=== PATIENT | female | born 1980 | race African-American/Black ===

== ENCOUNTER 2020-05-21 07:44 | Outpatient (REF) | payer OTHER, SELFPAY ==
[2020-05-21 11:07] LABS: MANUAL DIFF FLAG NO
[2020-05-21 11:18] LABS: Basophils Percent Auto 0.6 % (0-2); Eosinophils Absolute Auto 0.2 X10*3/uL (0.0-0.4); Eosinophils Percent Auto 4.1 % (0-4); Hematocrit 42.2 % (37-47); Hemoglobin 14.6 g/dl (12.0-16.0); Imm Gran Abs Auto 0.02 X10*3/uL (0.00-0.03); Imm Gran Pct Auto 0.4 % (0.0-0.4); Lymphocytes Absolute Auto 2.2 X10*3/uL (1.2-4.9); Lymphocytes Percent Auto 41.8 % (20-40); Mean Corpuscular HGB Conc 34.6 g/dl (31.0-35.0); Mean Corpuscular Hemoglobin 33.4 pg (27.0-33.0); Mean Corpuscular Volume 96.6 fL (80-98); Mean Platelet Volume 10.7 fL (9.4-12.3); Monocytes Absolute Auto 0.5 X10*3/uL (0.1-1.2); Monocytes Percent Auto 8.6 % (2-11); Neutrophils Absolute Auto 2.4 X10*3/uL (2.0-8.3); Neutrophils Percent Auto 44.5 % (45-73); Platelet Count 277 X10*3/uL (160-400); Red Blood Count 4.37 X10*6/uL (4.20-5.50); Red Cell Distribution Width 12.8 % (11.0-16.0); White Blood Count 5.4 X10*3/uL (4.8-10.8)
[2020-05-21 11:35] LABS: Estimated Average Glucose 94 mg/dL; Hemoglobin A1c % 4.9 %
[2020-05-21 11:50] LABS: Anion Gap 11 (12-20); Blood Urea Nitrogen 16 mg/dL (9-16); Calcium 9.3 mg/dL (8.4-10.2); Carbon Dioxide 25 mmol/L (22-29); Chloride 105 mmol/L (96-108); Cholesterol 177 mg/dL; Estimated Glomerular Filt Rate > 60; Glucose Fasting 102 mg/dL (60-99); HDL Cholesterol 42 mg/dL; LDL Cholesterol Calculated 110 mg/dl; Potassium 4.2 mmol/l (3.3-5.1); Sodium 137 mmol/L (135-145); Triglycerides 129 mg/dL
[2020-05-21 12:14] LABS: TSH reflex Free T4 1.04 mIU/mL (0.32-4.0)
== END 2020-05-21 07:45 | disposition home or self-care (01) ==
LOC: HO.HMGCLDS 07:44
PROVIDERS: PCP Internal Medicine; Visit Provider Internal Medicine
DX: F31.9 Bipolar disorder, unspecified (principal); Z76.89 Persons encountering health services in other specified circumstances; Z83.3 Family history of diabetes mellitus; Z72.0 Tobacco use
CPT/HCPCS: 36415; 80048; 80061; 83036; 84443; 85025

== ENCOUNTER → 2020-06-19 14:23 | Outpatient (BNVA) | payer OTHER, SELFPAY | PROVIDERS: Visit Provider Physician Assistant | DX: Z76.89 Persons encountering health services in other specified circumstances (principal) ==

== ENCOUNTER → 2020-06-22 14:32 | Outpatient (BNVA) | payer OTHER, SELFPAY | PROVIDERS: Visit Provider Physician Assistant | DX: S93.402D Sprain of unspecified ligament of left ankle, subsequent encounter (principal); X58.XXXD Exposure to other specified factors, subsequent encounter | CPT/HCPCS: 99212 ==

== ENCOUNTER 2020-07-03 11:33 | Outpatient (REF) | payer OTHER, SELFPAY ==
--- NOTE | 2020-07-03 11:33 | XR_ITS ---
EXAMINATION: XR ANKLE, LEFT CLINICAL INFORMATION: Left ankle sprain. COMPARISON: 04/02/2020 left ankle radiographs. TECHNIQUE: AP, lateral, and mortise views of the left ankle. FINDINGS: Again seen is a degenerative spur off of the medial margin of the medial malleolus without significant change. A corticated osseous densities are seen along the dorsal margins of the talonavicular and naviculocuneiform joints. There is a small plantar calcaneal spur. Mild soft tissue swelling is seen. XR/XR ankle LT min 3V IMPRESSION: Mild degenerative spurring as detailed above without significant interval change. No definitive acute abnormality.
== END 2020-07-03 11:34 | disposition home or self-care (01) ==
LOC: HO.HOSX 11:33
PROVIDERS: PCP Internal Medicine; Visit Provider Physician Assistant
DX: S93.492D Sprain of other ligament of left ankle, subsequent encounter (principal)
CPT/HCPCS: 73610; 99212

== ENCOUNTER 2020-07-23 15:00 | Outpatient (RCR) | payer OTHER, SELFPAY ==
--- NOTE | 2020-06-05 16:41 | MHC.PT.EP ---
[facility] [place] Office [place] Office [place] Office [address] Antonette Miller [address] [phone] F: [phone] F: [phone] F: [phone] F: [phone] Physical Therapy Plan of Care Date of Evaluation: 06/05/20 Date of Surgery: N/A Diagnosis: S82.892A closed avulsion fracture of left ankle, initial encounter Assessment: pt presents to physical therapy with pain, decreased range of motion, decreased strength, impaired functional mobility, impaired postural awareness, and gait deviations. pt is a good candidate for skilled PT due to age, potential remediation of impairments, typical disease/condition progression and prognosis, comorbidities, and motivation. pt would benefit from tailored strengthening and stretching exercise program, functional training, gait training, postural re-training, neuromuscular re-education, modalities as needed for pain, and equipment safety demonstration. Frequency and Duration: The patient will be seen 2x/wk for 6 wks Short Term Goals: pt will be I w/ HEP to promote self-management of condition. pt will improve L ankle dorsiflexion to neutral to promote normalized gait pattern on even ground. Clinical Administrator Goals: pt will report statistically significant improvement in self-reported outcome measure, LEFI, to facilitate return to PLOF. pt will report <2/10 L ankle pain w/ ambulation of >1200' on even ground to facilitate return to community ambulation. Treatment Plan: Modalities to reduce pain, spasms and effusion. Manual therapy to restore motion and function. Therapeutic exercise to improve strength and flexibility. Neuromuscular re-education for posture and balance. Therapeutic activities to return to functional activities of daily living. Please sign and return to therapist. Thank you for your referral.
--- NOTE | 2020-07-31 10:35 | MHC.PT.DC ---
[facility] [place] Office [place] Office [place] Office [address] Antonette Miller [address] [phone] F: [phone] F: [phone] F: [phone] F: [phone] Physical Therapy Discharge Report Diagnosis: S82.892A closed avulsion fracture of left ankle, initial encounter Date of Surgery: N/A Date of Evaluation: 06/05/20 Date of Discharge: 07/24/20 Treatments to Date: 12 Cancellations to Date: 1 No Shows to Date: 0 Discharge Status: Independent with HEP Recommend MD Follow-up Discharge Summary: The patient overall has not progressed as expected throughout this PT plan of care. She is limited by the midfoot and lateral ankle pain she sustained several months back. She continues to have pain at rest and with weight bearing. She has had a follow-up with orthopedics who are trying to get her a referral to a residential support worker. She is independent with her home exercise program and has the appropriate therabands. She is discharged from this physical therapy plan of care at this time. Electronically signed by: Britni France PT, DPT Please sign and return to therapist. Thank you for your referral.
== END 2020-07-31 10:35 | disposition other institution (70) ==
LOC: HO.PT 15:00
PROVIDERS: Visit Provider Physician Assistant
DX: S82.892D Other fracture of left lower leg, subsequent encounter for closed fracture with routine healing (principal)
CPT/HCPCS: 97110; 97112; 97116; 97161; 97530

== ENCOUNTER 2020-08-25 07:54 | Outpatient (REF) | payer OTHER, SELFPAY | END 2020-08-25 07:55 | disposition home or self-care (01) | LOC: HO.LAB 07:54 | PROVIDERS: PCP Internal Medicine; Visit Provider Internal Medicine | DX: Z20.822 Contact with and (suspected) exposure to COVID-19 (principal) | CPT/HCPCS: 36415; C9803; U0003 ==

== ENCOUNTER → 2020-12-16 15:40 | Outpatient (BNVA) | payer OTHER, SELFPAY | PROVIDERS: PCP Internal Medicine; Visit Provider Anesthesiology | DX: M79.672 Pain in left foot (principal); M19.072 Primary osteoarthritis, left ankle and foot; E66.01 Morbid (severe) obesity due to excess calories | CPT/HCPCS: 99202 ==

== ENCOUNTER 2021-06-12 08:46 | Outpatient (REF) | payer OTHER, SELFPAY ==
[2021-06-12 11:17] LABS: Hematocrit 41.7 % (37.0-47.0); Hemoglobin 14.1 g/dl (12.0-16.0); Mean Corpuscular HGB Conc 33.8 g/dl (31.0-35.0); Mean Corpuscular Hemoglobin 31.7 pg (27.0-33.0); Mean Corpuscular Volume 93.7 fL (80.0-98.0); Mean Platelet Volume 10.5 fL (9.4-12.3); Platelet Count 297 X10*3/uL (160-400); Red Blood Count 4.45 X10*6/uL (4.20-5.50); White Blood Count 6.1 X10*3/uL (4.8-10.8)
[2021-06-12 11:23] LABS: Estimated Average Glucose 97 mg/dL
[2021-06-12 11:37] LABS: Anion Gap 11 (12-20); Blood Urea Nitrogen 14 mg/dL (9-16); Calcium 9.4 mg/dL (8.4-10.2); Carbon Dioxide 25 mmol/L (22-29); Chloride 104 mmol/L (96-108); Cholesterol 187 mg/dL; Estimated Glomerular Filt Rate > 60; Glucose Fasting 87 mg/dL (60-99); HDL Cholesterol 42 mg/dL; LDL Cholesterol Calculated 107 mg/dl; Potassium 4.4 mmol/L (3.3-5.1); Sodium 136 mmol/L (135-145); Triglycerides 191 mg/dL
[2021-06-12 11:47] LABS: Free T4 (Free Thyroxine) 0.94 ng/dL (0.71-1.85)
[2021-06-13 09:02] LABS: Prolactin 9.4 ng/mL
== END 2021-06-12 08:47 | disposition home or self-care (01) ==
LOC: HO.HMGCLDS 08:46
PROVIDERS: PCP Internal Medicine; Visit Provider Clinical Nurse Specialist Psychiatric/Mental Health, Child & Adolescent
DX: Z51.81 Encounter for therapeutic drug level monitoring (principal); E66.9 Obesity, unspecified; E88.81 Metabolic syndrome and other insulin resistance
CPT/HCPCS: 36415; 80048; 80061; 83036; 84146; 84439; 84443; 85027

== ENCOUNTER 2021-06-24 13:45 | Outpatient (REF) | payer OTHER, SELFPAY ==
--- NOTE | ~2021-06-24 | MM_ITS ---
EXAMINATION: MM DIAGNOSTIC DIGITAL BREAST TOMOSYNTHESIS, BILATERAL US DIAGNOSTIC ULTRASOUND BREAST, LEFT CLINICAL INFORMATION: Fullness left axilla noted by patient (half lemon size) along with pain axilla and upper arm for approximately 6 weeks. No prior breast imaging. Age 41. The lifetime risk of breast cancer based on the Tyrer-Cuzick Model is 12%. COMPARISON: None (current study represents initial baseline exam). TECHNIQUE: Digital breast tomosynthesis is performed in both the craniocaudal and mediolateral oblique views along with computer-aided detection (CAD). Synthesized 2D images are generated from the tomosynthesis. Ultrasound left axilla is targeted to the area of clinical concern. Patient is able to point to area at time of imaging. Grayscale imaging and color Doppler are performed without and with harmonics. FINDINGS: There are scattered areas of fibroglandular density (ACR BI-RADS breast composition Category b). There are no significant masses, abnormal calcifications, or other abnormalities. There is no skin thickening or coarsening of the Oneal's ligaments. The axilla are unremarkable. There is small dermal lesion overlying left axilla marked with skin marker. Ultrasound targeted to the area of clinical concern left axilla demonstrates no cystic or solid mass. There is no skin thickening or edema tracking in soft tissue planes. There are scattered incidental axillary nodes demonstrated all with normal treasure architecture. Results are discussed with the patient at time of visit. MM/MM tomosynthesis diagnostic BI IMPRESSION: No mammographic evidence of malignancy or focal inflammatory changes. Unremarkable targeted left breast/axillary ultrasound. ASSESSMENT: BI-RADS 2: Benign RECOMMENDATION: 1. Patient should be managed based on the clinical impression. If clinically indicated, further evaluation may be considered with surgical consult. Decision to proceed with biopsy should be based on clinical grounds and degree of clinical concern. 2. Otherwise, routine annual screening mammography. This patient's information was entered into a reminder system with a target due date for their next mammogram.
== END 2021-06-24 13:46 | disposition home or self-care (01) ==
LOC: HO.MAMMO 13:45
PROVIDERS: PCP Internal Medicine; Visit Provider Physician Assistant
DX: N63.32 Unspecified lump in axillary tail of the left breast (principal)
CPT/HCPCS: 76642; 77062; 77066

== ENCOUNTER 2021-07-20 08:10 | Outpatient (REF) | payer OTHER, SELFPAY ==
--- NOTE | ~2021-07-20 | US_ITS ---
EXAMINATION: US PELVIS CLINICAL INFORMATION: Abnormal uterine and vaginal bleeding. COMPARISON: None TECHNIQUE: Ultrasound of the pelvis is performed using both transabdominal and transvaginal transducers along with Doppler. Transvaginal imaging is performed due to inadequate visualization transabdominally. FINDINGS: Uterus: The uterus is anteverted, anteflexed and measures 8.79 cm in length, 4.1 cm in AP, and 4.5 cm in transverse dimension. There is a hypoechoic partially exophytic lesion along the posterior fundus, likely subserosal measuring 1.6 x 1.8 x 1.8 cm. A second smaller lesion is seen superiorly measuring 1.3 x 1.3 x 1.4 cm, likely small fibroids. The double wall endometrial thickness is 0.50 mm. The uterus is smooth in contour and has normal myometrial echogenicity. No visible fibroid. There is a small round complex cyst with internal echoes in the cervix measuring 1.7 x 1.8 x 1.5 cm. Adnexa: Both ovaries are visualized. There is normal color flow to the adnexa. There is no ovarian torsion. There is no pelvic ascites or fluid collection. Right ovary measures 3.14 x 1.80 x 2.24 cm. Volume 6.63 mL. There is a simple cyst in the right ovary measuring 1.4 x 1.1 x 1.3 cm. Left ovary measures 2.20 x 1.42 x 1.65 cm and volume 2.70 mL. US/US pelvic and transvaginal IMPRESSION: Two uterine fibroids. Simple cyst right ovary. Complex nabothian cyst in the cervix measuring 1.8 cm.
== END 2021-07-20 08:11 | disposition home or self-care (01) ==
LOC: HO.HMGCX 08:10
PROVIDERS: PCP Internal Medicine; Visit Provider Internal Medicine
DX: N94.6 Dysmenorrhea, unspecified (principal); N93.8 Other specified abnormal uterine and vaginal bleeding
CPT/HCPCS: 76830; 76856

== ENCOUNTER → 2021-08-16 08:34 | Outpatient (BNVA) | payer OTHER, SELFPAY | PROVIDERS: PCP Internal Medicine; Referring Provider Internal Medicine; Visit Provider Surgery | DX: L98.9 Disorder of the skin and subcutaneous tissue, unspecified (principal); E66.9 Obesity, unspecified | CPT/HCPCS: 99202 ==

== ENCOUNTER 2021-08-17 12:22 | Outpatient (REF) | payer OTHER, SELFPAY ==
[2021-08-18 13:20] LABS: CT PCR NOT DETECTED (Not Detect.); NG PCR NOT DETECTED (Not Detect.)
[2021-08-24 03:12] LABS: HPV mRNA E6/E7 rflx Not Detected (Not Detected)
== END 2021-08-17 12:23 | disposition home or self-care (01) ==
LOC: HO.LAB 12:22
PROVIDERS: PCP Internal Medicine; Visit Provider Obstetrics & Gynecology
DX: Z12.4 Encounter for screening for malignant neoplasm of cervix (principal); Z11.51 Encounter for screening for human papillomavirus (HPV); N93.9 Abnormal uterine and vaginal bleeding, unspecified; D21.9 Benign neoplasm of connective and other soft tissue, unspecified
CPT/HCPCS: 87491; 87591; 87624; 88142; 99202

== ENCOUNTER 2021-08-23 08:02 | Outpatient (REF) | payer OTHER, SELFPAY | END 2021-08-23 08:03 | disposition home or self-care (01) | LOC: HO.LAB 08:02 | PROVIDERS: Visit Provider Obstetrics & Gynecology | DX: N93.9 Abnormal uterine and vaginal bleeding, unspecified (principal) | CPT/HCPCS: 58100; 81025; 88305 ==

== ENCOUNTER → 2021-09-06 08:37 | Outpatient (BNVA) | payer OTHER, SELFPAY | PROVIDERS: PCP Internal Medicine; Referring Provider Internal Medicine; Visit Provider Physician Assistant Surgical ==

== ENCOUNTER → 2021-09-07 09:21 | Outpatient (BNVA) | payer OTHER, SELFPAY | PROVIDERS: Visit Provider Obstetrics & Gynecology ==

== ENCOUNTER 2021-09-13 08:15 | Outpatient (REF) | payer OTHER, SELFPAY ==
[2021-09-13 08:15] VITALS: BP 133/92; PULSE 77; RESP 19; TEMP 36.3; O2SAT 99; BMI 52.9
--- NOTE | 2021-09-13 11:34 | W.PM.OPN ---
Operative Note Operative Note Date of Service: 09/13/21 Narrative: Preop diagnosis: Right axillary in lesion Postop diagnosis: The same Procedure: Excision of skin lesion, right axilla under local anesthesia Surgeon: Phil Chacon The patient is a 41-year-old female with a skin lesion on the right axilla. This was a polypoid looking lesion, elevated up to a height of 1.5 cm, with a very narrow base, soft and well-defined. She understood the technique of excision under local anesthesia. She was aware of the risks, benefits and alternatives. She was brought to the minor procedure room placed supine with right arm abducted to expose the axilla. This skin lesion was seen within the axilla itself. The area was prepped and draped. Lidocaine 1% was used for local anesthesia. I excised the skin lesion at the base using a blade 15 including the full-thickness of skin. This was sent as specimen. I closed the excision site with a nylon 3-0 interrupted stitch. Dressings were applied. She tolerated procedure well. There were no complication noted. She was given wound care instructions and will be seen in the office for follow-up in about 2 weeks.
== END 2021-09-13 08:16 | disposition home or self-care (01) ==
LOC: HO.MS 08:15
PROVIDERS: Visit Provider Surgery
PROC: (CPT 11200; principal; 2021-09-13 08:00)
DX: L98.9 Disorder of the skin and subcutaneous tissue, unspecified (principal)
CPT/HCPCS: 11200; 88304

== ENCOUNTER → 2021-09-20 09:54 | Outpatient (BNVA) | payer OTHER, SELFPAY | PROVIDERS: Visit Provider Surgery ==

== ENCOUNTER 2021-10-04 10:03 | Outpatient (REF) | payer OTHER, SELFPAY ==
--- NOTE | ~2021-10-04 | XR_ITS ---
EXAMINATION: XR CHEST CLINICAL INFORMATION: Obesity COMPARISON: Previous chest x-ray November 2018 TECHNIQUE: 2 views of the chest were obtained. FINDINGS: No significant abnormality is noted involving the heart, lungs, mediastinum, bony thorax or soft tissues. XR/XR chest 2V IMPRESSION: Unremarkable examination.
[2021-10-04 10:56] LABS: MANUAL DIFF FLAG NO
--- NOTE | 2021-10-04 10:57 | ECG_ITS ---
Test Reason : morbid obesity Blood Pressure : / mmHG Vent. Rate : 067 BPM Atrial Rate : 067 BPM P-R Int : 144 ms QRS Dur : 078 ms QT Int : 394 ms P-R-T Axes : 022 073 044 degrees QTc Int : 416 ms Normal sinus rhythm Normal ECG When compared with ECG of 17-NOV-2018 23:32, No significant change was found Referred By: Javier Ramon Electronically Signed By:SHAHEEN PERDOMO
[2021-10-04 11:40] LABS: Basophils Percent Auto 0.6 % (0-2); Eosinophils Absolute Auto 0.1 X10*3/uL (0.0-0.4); Eosinophils Percent Auto 1.8 % (0-4); Hematocrit 40.1 % (37.0-47.0); Hemoglobin 14.2 g/dl (12.0-16.0); Imm Gran Abs Auto 0.03 X10*3/uL (0.00-0.03); Imm Gran Pct Auto 0.4 % (0.0-0.4); Lymphocytes Absolute Auto 2.3 X10*3/uL (1.2-4.9); Lymphocytes Percent Auto 31.5 % (20-40); Mean Corpuscular HGB Conc 35.4 g/dl (31.0-35.0); Mean Corpuscular Hemoglobin 32.3 pg (27.0-33.0); Mean Corpuscular Volume 91.1 fL (80.0-98.0); Mean Platelet Volume 10.6 fL (9.4-12.3); Monocytes Absolute Auto 0.7 X10*3/uL (0.1-1.2); Monocytes Percent Auto 9.1 % (2-11); Neutrophils Absolute Auto 4.1 x10*3/uL (2.0-8.3); Neutrophils Percent Auto 56.6 % (45-73); Platelet Count 264 X10*3/uL (160-400); Red Cell Distribution Width 13.2 % (11.0-16.0); White Blood Count 7.2 X10*3/uL (4.8-10.8)
[2021-10-04 11:56] LABS: Estimated Average Glucose 103 mg/dL; Hemoglobin A1c % 5.2 %
[2021-10-04 12:17] LABS: Alanine Aminotransferase 23 U/L (0-31); Albumin Level 4.1 g/dL (3.5-5.0); Alkaline Phosphatase 72 U/L (39-117); Anion Gap 11 (12-20); Aspartate Amino Transferase 19 U/L (5-31); Bilirubin Total 0.7 mg/dL (0.0-1.0); Blood Urea Nitrogen 13 mg/dL (9-16); C Reactive Protein 0.67 mg/dL (< or = 0.50); Calcium 9.6 mg/dL (8.4-10.2); Carbon Dioxide 26 mmol/L (22-29); Chloride 104 mmol/L (96-108); Cholesterol 181 mg/dL; Estimated Glomerular Filt Rate > 60; Glucose Random 82 mg/dL (60-115); HDL Cholesterol 48 mg/dL; Iron 124 mcg/dL (30-160); LDL Cholesterol Calculated 106 mg/dl; Potassium 4.3 mmol/L (3.3-5.1); Sodium 137 mmol/L (135-145); Total Protein 7.1 g/dL (6.5-8.0); Triglycerides 137 mg/dL
[2021-10-04 12:20] LABS: Percent Iron Saturation 38 % (15-50); Total Iron Binding Capacity 329 mcg/dL (228-428); Unsaturated Iron Binding 205 ug/dL
[2021-10-04 12:25] LABS: Ferritin 40 ng/mL (10-250); Insulin 13 uU/mL (2-29); TSH reflex Free T4 2.01 uIU/mL (0.32-4.0); Vitamin D 25-OH Total 21.5 ng/mL (>30)
[2021-10-04 12:43] LABS: Folate 7.3 ng/mL (> or = 4.0); Vitamin B12 338 pg/mL (200-900)
[2021-10-05 13:02] LABS: Calcium (PTHI) 9.5 mg/dL (8.6-10.2); PTHI 45 pg/mL (14-64)
[2021-10-07 05:39] LABS: Zinc 76 mcg/dL (60-130)
[2021-10-08 06:27] LABS: Vitamin B1 <6 nmol/L (8-30)
[2021-10-09 18:41] LABS: Vitamin A 36 mcg/dL (38-98)
== END 2021-10-04 10:04 | disposition home or self-care (01) ==
LOC: HO.XRAY 10:03
PROVIDERS: PCP Internal Medicine; Visit Provider Surgery
DX: E66.01 Morbid (severe) obesity due to excess calories (principal); K21.9 Gastro-esophageal reflux disease without esophagitis
CPT/HCPCS: 36415; 71046; 80053; 80061; 82306; 82607; 82728; 82746; 83036; 83525; 83540; 83970; 84425; 84443; 84590; 84630; 85025; 86140; 93005

== ENCOUNTER 2021-10-11 | Outpatient (REF) | payer OTHER, SELFPAY ==
[2021-10-13 16:47] LABS: H Pylori Breath Test Negative (Negative)
== END 2021-10-11 00:01 | disposition home or self-care (01) ==
LOC: HO.LNP
PROVIDERS: Visit Provider Surgery
DX: E66.01 Morbid (severe) obesity due to excess calories (principal); K21.9 Gastro-esophageal reflux disease without esophagitis
CPT/HCPCS: 83013

== ENCOUNTER → 2021-10-11 09:33 | Outpatient (BNVA) | payer OTHER, SELFPAY | PROVIDERS: Referring Provider Internal Medicine; Visit Provider Physician Assistant | DX: Z11.0 Encounter for screening for intestinal infectious diseases (principal) | CPT/HCPCS: 99211 ==

== ENCOUNTER → 2021-10-15 08:08 | Outpatient (BNVA) | payer OTHER, SELFPAY | PROVIDERS: Visit Provider Dietitian, Registered | DX: E66.01 Morbid (severe) obesity due to excess calories (principal); Z68.42 Body mass index [BMI] 45.0-49.9, adult | CPT/HCPCS: 97802 ==

== ENCOUNTER 2021-10-18 08:40 | Outpatient (REF) | payer OTHER, SELFPAY ==
--- NOTE | ~2021-10-18 | MR_ITS ---
EXAMINATION: MR BRAIN WITHOUT AND WITH CONTRAST CLINICAL INFORMATION: Migraines. COMPARISON: Head CT from 09/26/2015. TECHNIQUE: Multiplanar, multisequence imaging of the brain was performed before and after the intravenous administration of 10 mL of Gadavist. FINDINGS: No diffusion abnormalities are identified to suggest an acute infarct. The ventricles are normal in size. No mass effect or midline shift is seen. Minimal scattered white matter signal changes noted which are nonspecific. No extra-axial fluid collections are seen. The cerebellum is normal. Subcentimeter focus of T2 hyperintensity noted in the lucia. There is no abnormal parenchymal or leptomeningeal enhancement. The gradient refocused acquisition demonstrates no pathologic magnetic susceptibility artifact to indicate underlying acute or chronic blood products. The craniovertebral junction, marrow signal, and midline structures are normal. The major intracranial flow voids at the level of the [place] are preserved. The dural venous sinus flow voids are maintained. There are mild degenerative changes of the temporomandibular joints bilaterally. There is [id number] mucosal thickening in the right maxillary sinus with some aerosolized secretions. Mild anterior ethmoid sinus mucosal thickening also evident with trace mucosal thickening along the floor of the left maxillary sinus cavity. There is a minimal amount of fluid in the dependent right mastoid air cells. MR/MR head/brain wo/w con IMPRESSION: No acute process. Minimal scattered nonspecific white matter signal changes. No abnormal enhancement.
== END 2021-10-18 08:41 | disposition home or self-care (01) ==
LOC: HO.MRI 08:40
PROVIDERS: Visit Provider Psychiatry & Neurology Neurology
DX: G43.909 Migraine, unspecified, not intractable, without status migrainosus (principal)
CPT/HCPCS: 70553; A9585

== ENCOUNTER → 2021-10-25 08:20 | Outpatient (BNVA) | payer OTHER, SELFPAY | PROVIDERS: Visit Provider Surgery | DX: Z13.89 Encounter for screening for other disorder (principal) ==

== ENCOUNTER → 2021-10-28 08:11 | Outpatient (BNVA) | payer OTHER, SELFPAY | PROVIDERS: Referring Provider Surgery; Visit Provider Dietitian, Registered | DX: E66.01 Morbid (severe) obesity due to excess calories (principal); Z68.41 Body mass index [BMI] 40.0-44.9, adult | CPT/HCPCS: 97803 ==

== ENCOUNTER 2021-11-15 08:01 | Outpatient (REF) | payer OTHER, SELFPAY ==
--- NOTE | ~2021-11-15 | US_ITS ---
EXAMINATION: US COMPLETE ABDOMEN WITH LIVER ELASTOGRAPHY CLINICAL INFORMATION: Obesity. COMPARISON: CT abdomen and pelvis dated 08/26/2016. TECHNIQUE: Real-time imaging of the abdominal viscera. Noninvasive ultrasound liver fibrosis assessment is performed using Mariano ElastPQ point quantification shear wave elastography (2D-SWE) with a C5-2 MHz transducer. Multiple elastography samples are obtained. FINDINGS: PANCREAS: Limited. The visualized pancreatic head and body are normal in appearance. The remainder of the pancreas is obscured from visualization by the overlying bowel gas. ABDOMINAL AORTA: The proximal, middle, and distal aortic segments are normal in caliber. INFERIOR VENA CAVA: Visualized portions are normal. LIVER: The liver demonstrates normal size, contour and generally increased echogenicity. No focal lesion or intrahepatic biliary duct dilatation. The right lobe measures 18.7 cm in length. The left lobe measures 12.7 cm in length. Portal flow is towards the liver (hepatopetal). Shear wave liver elastography median stiffness is 1.51 m/s (reference: normal median stiffness is 1.3 m/s or less). IQR/median stiffness to assess sampling precision is 0.17 (reference: good quality data set is IQR/median stiffness of 0.15 or less). GALLBLADDER: Normal. The gallbladder is physiologically distended without evidence of stones, sludge, polyps, wall thickening or pericholecystic fluid. COMMON BILE DUCT: Normal in caliber measuring 0.3 cm in diameter. RIGHT KIDNEY: Normal. No hydronephrosis. No renal calculi or focal parenchymal lesions. The kidney measures 12.8 cm in maximum dimension. LEFT KIDNEY: Normal. No hydronephrosis. No renal calculi or focal parenchymal lesions. The kidney measures 12.0 cm in maximum dimension. SPLEEN: Normal. The spleen measures 10.9 cm in maximum dimension. FREE FLUID: None. US/US abdomen comp w elastography IMPRESSION: 1. There is generalized increase in hepatic echotexture, consistent with fatty infiltration or hepatocellular disease. Please correlate clinically. No focal hepatic mass or intrahepatic biliary dilatation is seen. 2. Liver elastography: Although measurements are suggestive of compensated advanced chronic liver disease, there is statistical variability of the sampling which decreases accuracy. 3. Technically limited ultrasound examination of the pancreas. REFERENCE: Society of Radiologists in Ultrasound Liver Stiffness Thresholds (2020): LIVER STIFFNESS THRESHOLDS: *Liver Stiffness equal or less than 1.3 m/s: High probability of being normal. *Liver Stiffness less than 1.7 m/s: In the absence of other known clinical signs, rules out compensated advanced chronic liver disease. *Liver Stiffness 1.7-2.1 m/s: Suggestive of compensated advanced chronic liver disease but need further test for confirmation. *Liver Stiffness over 2.1 m/s: Rules in compensated advanced chronic liver disease. *Liver Stiffness over 2.4 m/s: Suggestive of clinically significant portal hypertension. QUALITY OF DATA SET: *IQR/Median value equal or less than 0.15 implies a quality data set. *IQR/Median value over 0.15 implies a poor quality data set. SIGNIFICANT CHANGE FROM PRIOR EXAM: Significant change if liver stiffness measurement is 10% or greater from prior exam. OTHER CONSIDERATIONS: The stage of liver fibrosis may be overestimated in the setting of acute hepatitis, liver inflammation, elevated liver function tests, hepatic vascular congestion, obstructive cholestasis, non-fasting state, and infiltrative diseases such as amyloidosis and lymphoma. In some patients with NAFLD, the liver stiffness thresholds for compensated advanced chronic liver disease may be lower. In causes other than viral hepatitis and NAFLD, liver stiffness thresholds are not well established.
--- NOTE | ~2021-11-15 | FL_ITS ---
EXAMINATION: XR FLUOROSCOPY UPPER GI WITH AIR CLINICAL INFORMATION: Preop obesity COMPARISON: CT from 08/26/2016 TECHNIQUE: Fluoroscopic assessment of the upper GI tract was performed in various upright and supine/prone obliquities utilizing thin and thick high density barium contrast material and effervescent granules. 13 mm barium tablet utilized. FINDINGS: The esophagus was normal in course, caliber, and contour. There was normal distensibility with no fixed segment of narrowing. No focal mucosal abnormality was identified. Normal passage of the 13 mm barium tablet. No significant esophageal dysmotility was observed. Contrast passed freely across the gastroesophageal junction into the stomach. There is a small sliding hiatal hernia. This extends the length of 2 vertebral bodies. There was normal distensibility of the stomach with no focal abnormality identified. There was prompt gastric emptying into the duodenum which demonstrated a normal appearance. No gastroesophageal reflux was observed. FLUOROSCOPY TIME: 1.4 minutes DOSE AREA PRODUCT: 33.762 Gy-cm2 (godinez-centimeter squared) FL/FL upper GI w air IMPRESSION: Small sliding hiatal hernia. Otherwise unremarkable upper GI examination.
[2021-11-15 11:31] LABS: Rheumatoid Factor < 15.0 IU/mL (<15.0)
[2021-11-15 11:37] LABS: Erythrocyte Sedimentation Rate 9 MM/HR (0-20)
[2021-11-15 12:22] LABS: Syphilis Screen Nonreactive (Nonreactive)
[2021-11-17 08:32] LABS: Lyme Abs Screen <0.90 index
[2021-11-19 14:56] LABS: Anti Nuclear Antibody Screen NEGATIVE (NEGATIVE)
== END 2021-11-15 08:02 | disposition home or self-care (01) ==
LOC: HO.US 08:01
PROVIDERS: Absent Provider Psychiatry & Neurology Neurology; PCP Internal Medicine; Visit Provider Surgery
DX: Z01.818 Encounter for other preprocedural examination (principal); E66.9 Obesity, unspecified; G43.909 Migraine, unspecified, not intractable, without status migrainosus
CPT/HCPCS: 36415; 74246; 76705; 76981; 85652; 86038; 86039; 86431; 86617; 86618; 86780

== ENCOUNTER → 2021-11-16 12:00 | Outpatient (BNVA) | payer OTHER, SELFPAY | PROVIDERS: Visit Provider Counselor Mental Health | DX: E66.9 Obesity, unspecified (principal); F31.9 Bipolar disorder, unspecified | CPT/HCPCS: 90791 ==

== ENCOUNTER → 2021-12-01 08:00 | Outpatient (BNVA) | payer OTHER, SELFPAY | PROVIDERS: Visit Provider Surgery | DX: E66.01 Morbid (severe) obesity due to excess calories (principal) ==

== ENCOUNTER → 2021-12-07 10:30 | Outpatient (BNVA) | payer OTHER, SELFPAY | PROVIDERS: Visit Provider Counselor Mental Health | DX: F31.9 Bipolar disorder, unspecified (principal); E66.9 Obesity, unspecified; F10.21 Alcohol dependence, in remission | CPT/HCPCS: 90834 ==

== ENCOUNTER → 2021-12-16 12:24 | Outpatient (BNVA) | payer OTHER, SELFPAY | PROVIDERS: Visit Provider Surgery | DX: Z13.89 Encounter for screening for other disorder (principal) ==

== ENCOUNTER → 2021-12-28 13:48 | Outpatient (BNVA) | payer OTHER, SELFPAY | PROVIDERS: Visit Provider Surgery | DX: Z13.89 Encounter for screening for other disorder (principal) ==

== ENCOUNTER → 2021-12-31 08:09 | Outpatient (BNVA) | payer OTHER, SELFPAY | PROVIDERS: Visit Provider Surgery | DX: Z13.89 Encounter for screening for other disorder (principal) ==

== ENCOUNTER 2022-01-07 15:37 | Outpatient (REF) | payer OTHER, SELFPAY ==
[2022-01-07 15:57] LABS: MANUAL DIFF FLAG NO
[2022-01-07 16:08] LABS: Basophils Percent Auto 0.3 % (0-2); Eosinophils Absolute Auto 0.1 X10*3/uL (0.0-0.4); Eosinophils Percent Auto 0.9 % (0-4); Hematocrit 40.3 % (37.0-47.0); Hemoglobin 14.3 g/dl (12.0-16.0); Imm Gran Abs Auto 0.02 X10*3/uL (0.00-0.03); Imm Gran Pct Auto 0.3 % (0.0-0.4); Lymphocytes Absolute Auto 2.3 X10*3/uL (1.2-4.9); Lymphocytes Percent Auto 33.4 % (20-40); Mean Corpuscular HGB Conc 35.5 g/dl (31.0-35.0); Mean Corpuscular Hemoglobin 32.1 pg (27.0-33.0); Mean Corpuscular Volume 90.6 fL (80.0-98.0); Monocytes Absolute Auto 0.6 X10*3/uL (0.1-1.2); Monocytes Percent Auto 8.3 % (2-11); Neutrophils Absolute Auto 3.8 x10*3/uL (2.0-8.3); Neutrophils Percent Auto 56.8 % (45-73); Platelet Count 248 X10*3/uL (160-400); Red Blood Count 4.45 X10*6/uL (4.20-5.50); Red Cell Distribution Width 13.2 % (11.0-16.0); White Blood Count 6.8 X10*3/uL (4.8-10.8)
[2022-01-07 16:13] LABS: Prothrombin Time 11.8 SEC (9.9-13.0)
[2022-01-07 16:16] LABS: Partial Thromboplastin Time 35.7 SEC (24.1-38.0)
[2022-01-07 16:24] LABS: Estimated Average Glucose 100 mg/dL; Hemoglobin A1c % 5.1 %
[2022-01-07 16:30] LABS: Alanine Aminotransferase 21 U/L (0-31); Albumin Level 4.2 g/dL (3.5-5.0); Alkaline Phosphatase 68 U/L (39-117); Anion Gap 13 (12-20); Aspartate Amino Transferase 17 U/L (5-31); Bilirubin Total 0.8 mg/dL (0.0-1.0); Blood Urea Nitrogen 13 mg/dL (9-16); C Reactive Protein 0.94 mg/dL (< or = 0.50); Calcium 9.8 mg/dL (8.4-10.2); Carbon Dioxide 26 mmol/L (22-29); Chloride 103 mmol/L (96-108); Cholesterol 179 mg/dL; Estimated Glomerular Filt Rate > 60; Glucose Random 93 mg/dL (60-115); HDL Cholesterol 36 mg/dL; LDL Cholesterol Calculated 114 mg/dl; Sodium 138 mmol/L (135-145); Total Protein 7.2 g/dL (6.5-8.0); Triglycerides 146 mg/dL
[2022-01-07 16:52] LABS: Insulin 15 uU/mL (2-29); TSH reflex Free T4 2.77 uIU/mL (0.32-4.0)
== END 2022-01-07 15:38 | disposition home or self-care (01) ==
LOC: HO.LAB 15:37
PROVIDERS: PCP Internal Medicine; Visit Provider Surgery
DX: E66.01 Morbid (severe) obesity due to excess calories (principal)
CPT/HCPCS: 36415; 80053; 80061; 83036; 83525; 84443; 85025; 85610; 85730; 86140

== ENCOUNTER 2022-01-11 08:17 | Inpatient (IN) | payer OTHER, SELFPAY ==
[2022-01-04 13:16] VITALS: BMI 50.8
--- NOTE | 2022-01-07 09:00 | HO.ANESPROP2 ---
Documented by User: Evelin Martinez NP 01/07/22 12:47 HPI - Anesthesia Eval Consult details Narrative: 41yo F for Gastrectomy Sleeve,EGD,Possible diaphragmatic hernia,Possible ventral hernia,Possible open TXA for heavy menses. On hold since 12/[address] Petr mtz. No documented hematologic disease. Updated labs pending. PMFSH Active Problems Active Problems: All Active Problems (Updated 01/04/22 @ 13:16 by Mere Valdez RN) Bipolar 1 disorder (Acute) Tobacco abuse (Acute) Family history of diabetes mellitus (Acute) Establishing care with new doctor, encounter for (Acute) Ankle sprain (Acute) Obesity (Acute) Foot pain, left (Acute) Ingrown toenail of left foot (Acute) Swelling in left armpit (Acute) History of head injury (Acute) Hearing loss in right ear (Acute) Dizziness (Acute) Memory change (Acute) Dysmenorrhea (Acute) Dysfunctional uterine bleeding (Acute) Abnormal uterine bleeding (AUB) (Acute) Myoma (Acute) Vitamin B1 deficiency (Acute) Vitamin B12 deficiency (Acute) Vitamin D deficiency (Acute) Vitamin A deficiency (Acute) BMI 39.0-39.9,adult (Acute) Alcohol dependence, in remission (Acute) GERD (gastroesophageal reflux disease) (Acute) Skin lesion of chest wall (Acute) Excessive subcutaneous fat (Acute) Morbid obesity due to excess calories (Acute) Arthritis of left foot (Acute) Impaired fasting blood sugar (Acute) Past Medical History Medical History Alcohol dependence in remission Arthritis Arthritis of left foot Bipolar 1 disorder COVID-19 vaccine series completed Depression Excessive subcutaneous fat GERD (gastroesophageal reflux disease) Heavy menses Impaired fasting blood sugar Morbid obesity due to excess calories PTSD (post-traumatic stress disorder) Skin lesion of chest wall Family History Family History Mother No problems noted. Other Family history unknown Surgical History Surgical History H/O removal of cyst History of incision and drainage Social History Social History Housing: Apartment Do you presently have visiting nurse or other home services: No Alcohol intake: never Patient Tobacco Use Status: Former Tobacco user Quit Date: 2020 Tobacco use type: Cigarette Cigarettes Per Day: 4 Use of substances other than those prescribed or required for medical reasons: No Substance Use Type Other:: prior occasional use of marijuana edibles Have you been hit, kicked, punched, or otherwise hurt by someone within the past year? If so, by whom?: No Are you DNR?: No Advance Directives: No Advance Directives Information Provided: Yes (brochure mailed) Advance Directives on File: No Recently lost weight without trying: No Eating poorly because of decreased appetite: No Nutrition Risks: No Nutritional Risk Patient : No FDLMP: 12/03/21 : No Poor oral hygiene: No Current occupational status: employed Current occupation: cleaning schools Meds Allergies Allergy/AdvReac Type Severity Reaction Status Date / Time prednisone Allergy Intermediate elevated Verified 01/04/22 09:56 blood pressure bupropion [From WELLBUTRIN] AdvReac Severe seizure Verified 12/28/21 15:36 buspirone [From BUSPAR] AdvReac Severe reports Verified 12/28/21 15:36 she becomes homicidal Steroids AdvReac Severe rachelle / HTN Uncoded 01/04/22 13:13 Home Medications Medication Instructions Recorded Confirmed Last Taken Type albuterol sulfate 90 mcg/actuation 2 inh INHALATION Q6H PRN 05/15/20 01/04/22 Unknown History breath activated powder inhaler cetirizine 10 mg tablet 10 mg PO DAILY 05/15/20 01/04/22 Unknown History acamprosate 333 mg tablet,delayed 666 mg PO TID tab 07/08/20 01/04/22 Unknown History release clonazepam 0.5 mg tablet 0.5 mg PO BID PRN 07/08/20 01/04/22 01/11/22 08:42 History Exam Exam Date and Time: January 07, 2022 0900 Height,Weight and Vital Signs: Height 5 ft 8 in Weight 151.5 kg Narrative Narrative: EKG 09/2021 Vent. Rate : 067 BPM ? ? Atrial Rate : 067 BPM ?? P-R Int : 144 ms? QRS Dur : 078 ms ? ? QT Int : 394 ms ? ? ? P-R-T Axes : 022 073 044 degrees ?? QTc Int : 416 ms ? Normal sinus rhythm Normal ECG When compared with ECG of 17-NOV-2018 23:32, No significant change was found Assessment and Plan Assessment Anesthesia Assessment: Chart Reviewed Documented by User: Kasia Jones MD 01/11/22 09:45 PMFSH Past Medical History Medical History Alcohol dependence in remission Arthritis Arthritis of left foot Bipolar 1 disorder COVID-19 vaccine series completed Depression Excessive subcutaneous fat GERD (gastroesophageal reflux disease) Heavy menses Impaired fasting blood sugar Morbid obesity due to excess calories PTSD (post-traumatic stress disorder) Skin lesion of chest wall Family History Family History Mother No problems noted. Other Family history unknown Surgical History Surgical History H/O removal of cyst History of incision and drainage History of Problems with Anesthesia: No Social History Social History Housing: Apartment Do you presently have visiting nurse or other home services: No Alcohol intake: never Patient Tobacco Use Status: Former Tobacco user Quit Date: 2020 Tobacco use type: Cigarette Cigarettes Per Day: 4 Use of substances other than those prescribed or required for medical reasons: No Substance Use Type Other:: prior occasional use of marijuana edibles Have you been hit, kicked, punched, or otherwise hurt by someone within the past year? If so, by whom?: No Are you DNR?: No Advance Directives: No Advance Directives Information Provided: Yes (brochure mailed) Advance Directives on File: No Recently lost weight without trying: No Eating poorly because of decreased appetite: No Nutrition Risks: No Nutritional Risk Patient : No FDLMP: 12/03/21 : No Poor oral hygiene: No Current occupational status: employed Current occupation: cleaning schools Meds Allergies Allergy/AdvReac Type Severity Reaction Status Date / Time prednisone Allergy Intermediate elevated Verified 01/04/22 09:56 blood pressure bupropion [From WELLBUTRIN] AdvReac Severe seizure Verified 12/28/21 15:36 buspirone [From BUSPAR] AdvReac Severe reports Verified 12/28/21 15:36 she becomes homicidal Steroids AdvReac Severe rachelle / HTN Uncoded 01/04/22 13:13 Home Medications Medication Instructions Recorded Confirmed Last Taken Type albuterol sulfate 90 mcg/actuation 2 inh INHALATION Q6H PRN 05/15/20 01/04/22 Unknown History breath activated powder inhaler cetirizine 10 mg tablet 10 mg PO DAILY 05/15/20 01/04/22 Unknown History acamprosate 333 mg tablet,delayed 666 mg PO TID tab 07/08/20 01/04/22 Unknown History release clonazepam 0.5 mg tablet 0.5 mg PO BID PRN 07/08/20 01/04/22 01/11/22 08:42 History Exam Airway Mallampati Class: II TM Dist: >3cm Neck ROM: Full Loose/Missing/Broken Teeth: No Heart: RRR Lungs: CTA Assessment and Plan Assessment Anesthesia Assessment: Anesthesia Plan Discussed Final Anesthetic Review History of Problems with Anesthesia: No NPO: Yes ASA Class: III Final Preanesthetic Review: Meds/Allgs Chart Reviewed, Consent Obtained/Reviewed and Anes Risks/Benef Reviewed Patient Risk: Intermediate Procedure Risk: Intermediate Anesthetic Plan Anesthetic Plan: GA Disposition: Standard PACU
--- NOTE | 2022-01-08 23:49 | MHC.SHP ---
Pre-Procedural Eval Section A Date of Service: 01/08/22 The patient is an INPATIENT: Yes The History & Physical has been completed within 30 days and I have reviewed it.: Yes Section B Chief Complaint: obesity Relevant Family History (Specify if Yes): No Relevant Social History: None Present Medications: None Medical History: No relevant PMH History of Previous Operations: No relevant previous surgery Allergies: Allergies Allergy/AdvReac Type Severity Reaction Status Date / Time prednisone Allergy Intermediate elevated Verified 01/04/22 09:56 blood pressure bupropion [From WELLBUTRIN] AdvReac Severe seizure Verified 12/28/21 15:36 buspirone [From BUSPAR] AdvReac Severe reports Verified 12/28/21 15:36 she becomes homicidal Steroids AdvReac Severe rachelle / HTN Uncoded 01/04/22 13:13 Review of Systems Sugical H&P ROS: Negative: Constitution, Cardiovascular, Respiratory, Neurological, Psychiatric, Hem-Onc, Allergic/Immunologic, Gastrointestinal, Genitourinary, Musculoskeletal, Integumentary, Endocrine and Eyes/Ears/Nose/Throat Exam Surgical H&P Exam: Normal: HEENT, Normal: Heart, Normal: Lungs, Normal: Extremities, Normal: Abdomen, Normal: Skin and Normal: Neurological Plan Diagnosis/Plan: Unchanged I have reviewed the history and physical and performed a pertinent physical examination on my patient. No changes have occurred unless specified.
[2022-01-11] VITALS (13 sets, daily range): BP systolic 103–157; BP diastolic 58–95; PULSE 65–94; RESP 16–20; TEMP 36.2–36.6; O2SAT 94–100
[2022-01-11 09:02] LABS: UPreg QC Valid YES; Urine Pregnancy NEGATIVE (NEGATIVE)
[2022-01-11 09:19] LABS: COVID-19 Test Negative (Negative); IDNOW Serial# 16C4AD1C
[2022-01-11] MEDS: Lactated Ringers 1,000 ML 999 ML IV (09:32)
[2022-01-11] MEDS: Lactated Ringers 1,000 ML 100 ML IVCONT ×3 (09:33→21:31)
--- NOTE | 2022-01-11 11:31 | P.BOP_ITS ---
Brief Operative Note Date of Service: 01/11/22 Pre-op diagnosis: Morbid obesity with comorbidities (see below) Post-op diagnosis: same Procedure: INITIAL PATIENT BMI ON PRESENTATION AT OUR OFFICE: 52 kg/m2 LAST BMI BEFORE SURGERY: 42,6 kg/m2 COMORBIDITIES: DJD, PTSD, Depression, Anxiety, dysmenorrhea, diaphragmatic hernia, liver steatosis ?The patient presented to the Weight Management Program with significant obesity that was negatively impacting the patient's comorbidities as listed above.? The program is a phased program with a special focus on preoperative medical weight management to promote substantial weight loss and prepare the patients for the second phase of the program: bariatric surgery. The patient participated in an intensive weekly lifestyle ?intervention and exercise program during which the patient ?has lost between the initial office visit and the last preoperative visit 24lbs, or 7.01% of initial actual body weight. It was deemed appropriate for the patient to now have bariatric surgery. In light of the current Covid-19 pandemic and the well documented strong association of obesity and increased risk of worse outcomes if infected with Covid-19 (REFERENCES: https://pubmed.ncbi.nlm.nih.gov/95089323/ ,? https://pubmed.ncbi.nlm.nih.gov/00131262/ ), any delay in undergoing bariatric surgery may lead to the patient's worsening health condition and increased?risk of more severe Covid-19 disease if infected. In addition a recent?study from [facility] published in [facility] on 08/09/2021 ([email or web address]) found that, among patients with obesity, substantial weight loss achieved with surgery was associated with improved outcomes of COVID-19 infection. The findings suggest that obesity can be a modifiable risk factor for the severity of COVID-19 infection. In addition, the patient met the BMI-criteria for bariatric surgery based on the BMI on initial presentation. The patient should not be penalized for achieving such weight loss because ?it is not sustainable long-term without surgical intervention and it was achieved in preparation for bariatric surgery ?under my direction and based on my published research ([email or web address]).[email or web address] and? https://www.soard.org/article/[email or web address](03)08330-X/pdf ) ?that a 10% preoperative weight loss improves long-term weight loss after surgery and reduces perioperative complications.? Insurance carriers such as [employer] [facility] have endorsed my recommendations ?and have included in their policies criteria to include a 10% preoperative weight loss requirement. PROCEDURE: Esophago-gastroscopy, laparoscopic repair of incarcerated diaphragmatic hernia, laparoscopic lysis of adhesions, laparoscopic sleeve gastrectomy and laparoscopic gastropexy INDICATIONS: This is a 49 year-old female who was electively scheduled for laparoscopic, possibly open sleeve gastrectomy. The risks and complications of the procedure were discussed with the patient in advance, particularly the possibility of ; pulmonary embolism; staple line leak; bleeding; GERD; cardiac, pulmonary, or renal complications; as well as long-term problems such as insufficient weight loss, vitamin deficiency, strictures, or ulcers. The patient understood all the risks, and was in agreement to proceed with surgery. DESCRIPTION OF PROCEDURE: After informed consent was obtained from the patient, the patient was given preoperative antibiotics, and was transferred to the operating room. After successful induction of general anesthesia, pneumatic compression devices were placed on both lower extremities. An upper endoscopy was performed next. The oropharynx and esophagus appeared to be within normal limits. There was a small diaphragmatic hernia present consistent with the findings of the preoperative upper GI. The stomach was entered. Then after all fluid and air were suctioned and the stomach was fully decompressed, the scope was withdrawn and secured in the mid esophagus. The patient was then prepped and draped in the usual sterile manner, and abdominal access was established at the right upper quadrant with the Kamilah technique. A 12 mm blunt port was inserted, and the abdomen was insufflated with CO2 to a pressure of 15 mmHg. Under direct visualization, additional ports were placed, specifically two 5 mm Versi-step ports to the left upper quadrant, and a 5 mm Versi-Step port to the right upper quadrant. 1% lidocaine plain was used to infiltrate all port sites as well as all fascia defects. Using the EndoClose suture passer device, I placed a #1 Polysorb tie across the falciform ligament in order to retract it up against the abdominal wall and prevent injury of the ligament with our instruments during the procedure. Following that, the patient was placed in a steep reverse Trendelenburg position. An additional 5 mm port was placed to the right flank for the Mediflex retractor that was used to retract the left lobe of the liver. The gastro-esophageal fat pad was opened with the ultrasonic device (Thunderbeat, Olympus) and the anterior esophagus and hiatus were exposed. The angle of His was opened with the ultrasonic device the fundus of the stomach from any diaphragmatic and splenic attachments. I then opened the gastrocolic ligament between the transverse colon and the greater curvature of the stomach with the ultrasonic device to enter the lesser sac and facilitate the ligation of the short gastric vessels. I started at a mid-point along the greater curvature and using the Thunderbeat, all short gastric vessels were divided all the way to the angle of His until the left evelin was completely dissected at its entirety. I then divided the gastro-colic ligament distally to a distance of about 3-4 cm proximal to the pylorus. The stomach was then divided transversely with one Endo GAGE-45 purple, two GAGE- 45 orange loads and four GAGE-60 articulating orange loads using the AEON stapler and loads. Every effort was made that the gastric sleeve had a tubular shape and an even caliber throughout. Once the sleeve resection was completed, the staple line of the gastric sleeve was reinforced with Hemoclips. The resected stomach was retrieved without difficulty from the Kamilah port. A gastropexy was then performed in order to prevent postoperative GERD and partial gastric volvulus. Several interrupted 2.0 Surgidac sutures were placed between the sleeve's staple line and the previously divided greater omentum and gastro-colic ligament using the Endo-Stitch device. ?An upper endoscopy was performed. There was no narrowing at the GE junction. The scope was easily advanced all the way to the pylorus which was clearly visualized. There was no narrowing anywhere and the sleeve's caliber was even throughout. The sleeve's staple line was inspected and there was no evidence of ischemia, bleeding or dehiscence. At that point the gastroscope was withdrawn from the patient?s mouth while we were decompressing the bowel and the stomach from any remaining air. I looked into the lesser sac to see how the sleeve was situating and it was situating well. There was no bleeding from the staple line, spleen, or short gastric vessels. The Mediflex retractor was removed, and the undersurface of the liver was inspected and there was no bleeding. The patient was placed in supine position. I closed the fascial defect of the 12 mm port site with a figure of eight #1 Polysorb suture. Then 100 cc 0.25 % Marcaine plain with 10 mg of Dexamethasone were used to infiltrate the fascial closure as well as all skin incisions. A total of 7ml of Zynrelef was applied into the Kamilah wound. At this point, the abdomen was deflated, all ports were removed under direct vision, and no bleeding was noted from any of the port sites. The skin incisions were irrigated with saline and were closed with 4-0 absorbable monofilament sutures. Steri- Strips and OpSites were used to cover all incisions. The patient was extubated and was transferred in stable condition to the recovery room for further care. I was present and performed all leger parts of the procedure. Ms. Ferraro was the events and promotions assistant. There were no residents to assist with this case. Wicho Ramon MD, PhD, FACS Surgeon: Javier Ramon MD Anesthesia: GETA, local and other (TAP block & 7ml of Zynrelef) Was an Racing Car Driver used for this Procedure?: No Racing Car Driver: Aparna Ferraro Estimated blood loss (mL): 10 IV fluids (mL): 3,000 Urine output (mL): 0 (No Celis to record) Pathology: other (Stomach) Condition: stable Disposition: PACU
--- NOTE | 2022-01-11 11:34 | PM.PNGS ---
Subjective Subjective Date of Service: 01/12/22 Interval history: Patient has mild incisional pain, but was able to ambulate and use the incentive spirometer. Some nausea overnight. Will start phase 1 now Physical Exam Vital Signs: Vital Signs: Last Vital Signs Temp 97.4 F 01/11/22 09:13 Pulse 68 01/11/22 09:13 Resp 16 01/11/22 09:13 BP 103/58 L 01/11/22 09:13 Pulse Ox 97 01/11/22 09:13 BMI result Body Mass Index 50.8 GI: Inspection: Yes normal to inspection, Yes incision (clean, dry and intact) and Yes obesity Extrem: Right lower extremity: normal to inspection (no calf tenderness) Left lower extremity: normal to inspection (no calf tenderness) Objective Data Active Medications Albuterol Sulfate (Albuterol Sulfate (0.083%) 2.5 Mg/3 Ml Vial.Neb) 2.5 mg INHALE ONCE PRN PRN Reason: Wheezing Fentanyl (Fentanyl Citrate/Pf 100 Mcg/2 Ml Vial) 50 mcg IVPUSH Q5M PRN; Protocol PRN Reason: Pain, Severe (Pain Scale 7-10) Fentanyl (Fentanyl Citrate/Pf 100 Mcg/2 Ml Vial) 25 mcg IVPUSH Q5M PRN; Protocol PRN Reason: Pain, Moderate (Pain Scale 4-6 Hydromorphone HCl (Hydromorphone Hcl 0.5 Mg/0.5 Ml Syringe) 0.25 mg IVPUSH Q5M PRN; Protocol PRN Reason: Pain, Severe (Pain Scale 7-10) Lactated Ringer's (Lr) 1,000 mls @ 100 mls/hr IVCONT .Q10H DARLENE Last Admin: 01/11/22 09:33 Dose: 100 mls/hr Documented by: SHAI Promethazine HCl 12.5 mg/ (Sodium Chloride) 50.5 mls @ 202 mls/hr IV ONCE PRN PRN Reason: Nausea and Vomiting Ondansetron HCl (Ondansetron Hcl 4 Mg/2 Ml Vial) 4 mg IVPUSH ONCE PRN PRN Reason: Nausea and Vomiting Oxycodone HCl (Oxycodone Hcl Immed Release 5 Mg Tablet) 10 mg PO ONCE PRN PRN Reason: Pain, Severe (Pain Scale 7-10) Oxycodone HCl (Oxycodone Hcl Immed Release 5 Mg Tablet) 5 mg PO ONCE PRN PRN Reason: Pain, Severe (Pain Scale 7-10) Labs CBC & Chem 7: 01/12/22 05:39 01/12/22 05:39 Labs: Laboratory Results - last 24 hr 01/11/22 01/11/22 01/11/22 06:25 08:37 08:37 Urine Test NEGATIVE COVID-19 ([facility]) Cancelled Negative COVID-19 Clin Com Cancelled See Note Procedures Date of Service Date of Service: 01/12/22 Progress Note: A&P Assessment and plan (1) Morbid obesity due to excess calories: Status: Acute Assessment and Plan: s/p laparoscopic sleeve gastrectomy, lysis of adhesions repair of diaphragmatic hernia, and gastropexy Doing well Check am labs. If OK, will discharge home? (2) GERD (gastroesophageal reflux disease): Status: Acute (3) Alcohol dependence, in remission: Status: Acute (4) Dysmenorrhea: Status: Acute (5) Bipolar 1 disorder: Status: Acute (6) Diaphragmatic hernia: Status: Acute (7) Steatosis, liver: Status: Acute (8) Liver fibrosis: Status: Acute (9) S/P laparoscopic sleeve gastrectomy: Status: Acute Time Spent With Patient Time: Total time spent is greater than 50% in coordination of care (as documented) at patient's floor/unit and/or counseling patient: Quality Stroke Does the patient have a stroke diagnosis?: No VTE Prior VTE?: No VTE Risk Level:: Surgical - moderate VTE Device Contraindication: N/A - Device Ordered VTE Drug Contraindication: Treatment Not Indicated
[2022-01-11] MEDS: ceFAZolin Sodium/Dextrose,Iso 2 GM/50 ML PIGGYBACK IV ×2 (11:40→18:44)
--- NOTE | 2022-01-11 15:08 | P.DS_ITS ---
DS: Providers Provider Date of Service: 01/12/22 Date of admission: 01/11/22 08:17 Primary care physician: Benjamín Mistry MD DS: Diagnosis Discharge Diagnosis (1) Morbid obesity due to excess calories: Status: Acute (2) GERD (gastroesophageal reflux disease): Status: Acute (3) Alcohol dependence, in remission: Status: Acute (4) Dysmenorrhea: Status: Acute (5) Bipolar 1 disorder: Status: Acute (6) Diaphragmatic hernia: Status: Acute (7) Steatosis, liver: Status: Acute (8) Liver fibrosis: Status: Acute DS: Summary Hospital Course Hospital Course: ADMITTING DIAGNOSIS: morbid obesity, GERD, hx ETOH dependence DISCHARGE DIAGNOSIS: same, s/p laparoscopic sleeve gastrectomy PAST SURGICAL HISTORY: none PROCEDURE: upper endoscopy, laparoscopic sleeve gastrectomy DISCHARGE SUMMARY: History of Present Illness: The patient is a 41 year-old woman with a BMI of 52kg/m2 and associated co- morbidities as described above. The patient had extensive work-up, lost 7.3lbs preoperatively and was electively scheduled for laparoscopic, possible open sleeve gastrectomy and gastropexy. Risks and complications of the surgery were discussed with the patient in advance, particularly the possibility of , pulmonary embolism, anastomotic leak, bleeding, bowel injury, GERD, cardiac, renal or pulmonary complications. The patient understood all the risks and was in agreement with the surgical plan. Hospital Course: The patient underwent an uneventful laparoscopic sleeve gastrectomy with gastropexy and repair of diaphragmatic hernia on the day of admission. Postope ratively, the patient was transferred to the surgical floor. The patient received IV Acetaminophen and IV dilaudid for pain control. Patient was started on bariatric phase 1 diet POD #0. On postoperative day one, the patient was feeling well without nausea, vomiting, fevers, or tachycardia. The patient had some mild incisional pain and the abdomen was soft. On the morning of postoperative day one, the patient was continued on 1 ounce of water or ice every half hour. During the day, the patient did fairly well, having some incisional pain, but able to ambulate adequately and to tolerate liquids well. Since the patient is doing well, we decided that the patient was ready to be discharged. The patient was given instructions to follow-up with me next week and to call my office for any fever over 101, persistent abdominal pain, nausea, vomiting, GERD, symptoms of DVT such as calf tenderness, or leg swelling, or pulmonary embolism such as chest pain or shortness of breath. The patient was also instructed to drink 40-60 ounces of liquids per day using the 1-ounce cups. The patient had been given prescriptions for Tylenol for pain, Zofran prn for nausea, and pantoprazole and carafate previously. The patient was encouraged to ambulate and use the incentive spirometer. The patient was allowed to shower, but no baths, and encouraged to stay active at home. All of these instructions were given to the patient personally. All questions were answered and the patient understood all instructions, the instructions were also given to the patient in print. Time Spent with Patient Time attestation: Total time spent providing and/or coordinating discharge services: Discharge coordination time: Less than 30 minutes Quality: Safe Use of Opioids Does Pt have an Active Cancer Diagnosis on the Problem List?: No Quality: Stroke Does the patient have a stroke diagnosis?: No Physical Exam Vital Signs: Vital Signs: Last Vital Signs Temp 97.4 F 01/11/22 09:13 Pulse 68 01/11/22 09:13 Resp 16 01/11/22 09:13 BP 103/58 L 01/11/22 09:13 Pulse Ox 97 01/11/22 09:13 BMI result Body Mass Index 50.8 DS: Data Data Completed and Pending Pending studies at discharge: Pending at discharge 01/11/22 14:04 Surgical [PTH] Routine Labs on day of discharge: Laboratory Results - last 24 hr 01/11/22 01/11/22 01/11/22 06:25 08:37 08:37 Urine Test NEGATIVE COVID-19 ([facility]) Cancelled Negative COVID-19 Clin Com Cancelled See Note Discharge Plan Discharge Anticipated Discharge Date/Time: 01/12/22 10:02 Patient Disposition: Home, Self-Care Discharge Diagnosis: s/p sleeve gastrectomy Referrals: Benjamín Mistry MD [Primary Care Provider] - 1 Week Discharge Medications: Continued albuterol sulfate 90 mcg/actuation aerosol powdr breath activated 2 inh inhalation Q6H PRN (Reason: Allergy Symptoms) 0RF cetirizine 10 mg tablet 10 mg PO DAILY 0RF clonazepam 0.5 mg tablet 0.5 mg PO BID PRN (Reason: Anxiety) 0RF acamprosate 333 mg tablet,delayed release (DR/EC) 666 mg PO TID 0RF pantoprazole 40 mg tablet,delayed release (DR/EC) 40 mg PO DAILY Qty: 30 2RF ondansetron HCl 4 mg tablet 4 mg PO Q12H Qty: 20 0RF Label Comments: patient did not start this medication yet Held tranexamic acid [Lysteda] 650 mg tablet 1,300 mg PO TID 5 Days Qty: 30 2RF Hold Instructions: Discuss restart with Dr Ramon Rx Instructions: Start 1st day of menses and take it up to 3-5 days of menses. Discontinued thiamine HCl (vitamin B1) 100 mg tablet 100 mg PO DAILY Qty: 30 2RF mecobalamin (vitamin B12) 1,000 mcg tablet,disintegrating 1,000 mcg sublingual DAILY Qty: 30 2RF Rx Instructions: place tablet under tongue and allow to dissolve for at least30 secs before swallowing cholecalciferol (vitamin D3) 125 mcg (5,000 unit) capsule 125 mcg PO DAILY Qty: 30 2RF vitamin A palmitate 10,000 unit capsule 10,000 unit PO .COMPLEX Qty: 30 1RF Rx Instructions: 10,000 units PO one per day; Diet: other Activity on Discharge: No heavy lifting Stand Alone Forms: Patient Portal Discharge page Care Plan Goals: weight loss Health Concerns: morbid obesity Plan of Treatment: No tub baths, sex or returning to work until discussed at first post op appointment. No exercise, alcohol, tobacco or illegal drug use. Continue to use incentive spirometer hourly while awake. Walk in home for 5- 10 minutes every 2 hours during the first week. Continue phase 1 diet today and start phase 2 diet tomorrow morning. Follow all instructions in the bariatric handbook and call with any questions. 1. Please call your doctor or come back to the emergency room should any new symptoms arise. 2. You will receive a courtesy call from [facility] 24-48 hours after discharge. 3. Activity: abstain from alcohol, practice limited stair climbing, no bending, no driving, no exercise, no illicit substances, no lifting, no sex, no tub bath, no work. 4. Diet: continue as discussed with Dr. Ramon. 5. Dressing Change/Wound Care: Do not change or remove surgical dressings unless they are wet or soiled. 6. Call your doctor if: - Your temperature exceeds 101.5 F - You experience excessive pain or swelling - You have an unexpected reaction to medication - You have excessive bleeding - You experience continued vomiting/nausea - Your incision begins to separate - Your incision shows signs of infection such as increased redness, swelling, excessive pain, heat, or drainage (light blood or clear fluid is normal) 7. General instructions: No lifting greater than 5 lbs for the next 4 weeks[address] driving within 24 hours of taking narcotic pain medications. If you do not move your bowels in the next 2 days, please take milk of magnesia over the counter. Please follow the post op diet and do not advance your diet until you are seen in the office in about 2 weeks. Please walk around your home every hour or two to prevent blood clots from forming in your legs. You do not need to wake from sleeping to walk. Please sleep in a bed or couch to prevent kinking at the hips and knees. Please take your incentive spirometer (your lung brush cutter) home with you and use it for the next few days to prevent pneumonias. You may shower, no hot tubs, baths or swimming pools. Please call the office with any questions or concerns such as increasing abdominal pain, fever, chills, shortness of breath, chest pain, leg pain or swelling, or redness or drainage from your incisions. Do not hesitate to contact the office with any questions at . The patient's medical history has been reviewed and they are considered low risk for post op DVT and therefore DVT prophylaxis is not considered necessary. Travel after surgery was reviewed. The patient has not disclosed any travel plans during the first 30 days after surgery and they have been advised that within the first 30 days after surgery any bus, plane, train or car travel over 2 hours in duration is contraindicated due to the possibility of developing blood clots from immobility. Any travel, needs to include periods of ambulation of 10 minutes in duration every 2 hours. The patient was instructed to discuss any plans for travel during this period with their bariatric surgeon. Assessment: stable post op sleeve gastrectomy
[2022-01-11] MEDS: ondansetron HCL 4 MG/2 ML VIAL IVPUSH ×2 (15:19→21:18)
[2022-01-11] MEDS: Famotidine/PF 20 MG/2 ML VIAL IVPUSH ×2 (15:33→21:18)
[2022-01-11 15:35] LABS: Hematocrit 39.2 % (37.0-47.0); Hemoglobin 13.7 g/dl (12.0-16.0)
[2022-01-11 15:48] LABS: Anion Gap 14 (12-20); Blood Urea Nitrogen 10 mg/dL (9-16); Calcium 9.3 mg/dL (8.4-10.2); Carbon Dioxide 21 mmol/L (22-29); Chloride 107 mmol/L (96-108); Creatinine Clr Calc Pharmacy 103.9; Estimated Glomerular Filt Rate 55; Glucose Random 155 mg/dL (60-115); Potassium 3.7 mmol/L (3.3-5.1); Sodium 138 mmol/L (135-145)
[2022-01-11] MEDS: Metoclopramide HCl 10 MG/2 ML VIAL IVPUSH (15:53)
[2022-01-11] MEDS: 0.9 % Sodium Chloride Flush 3 ML SYRINGE IVFLUSH (18:06)
[2022-01-12] MEDS: 0.9 % Sodium Chloride Flush 3 ML SYRINGE IVFLUSH ×4 (01:15→08:24)
[2022-01-12 03:00] VITALS: BP 124/58; PULSE 68; RESP 18; TEMP 36.1; O2SAT 98
[2022-01-12 05:53] LABS: MANUAL DIFF FLAG NO
[2022-01-12 06:00] LABS: Hematocrit 38.6 % (37.0-47.0); Hemoglobin 13.6 g/dl (12.0-16.0); Imm Gran Abs Auto 0.03 X10*3/uL (0.00-0.03); Imm Gran Pct Auto 0.4 % (0.0-0.4); Lymphocytes Absolute Auto 1.1 X10*3/uL (1.2-4.9); Lymphocytes Percent Auto 13.7 % (20-40); Mean Corpuscular HGB Conc 35.2 g/dl (31.0-35.0); Mean Corpuscular Hemoglobin 31.7 pg (27.0-33.0); Mean Platelet Volume 10.5 fL (9.4-12.3); Monocytes Absolute Auto 0.6 X10*3/uL (0.1-1.2); Monocytes Percent Auto 7.9 % (2-11); Neutrophils Absolute Auto 6.2 x10*3/uL (2.0-8.3); Platelet Count 245 X10*3/uL (160-400); Red Blood Count 4.29 X10*6/uL (4.20-5.50); Red Cell Distribution Width 13.3 % (11.0-16.0); White Blood Count 7.9 X10*3/uL (4.8-10.8)
[2022-01-12] MEDS: ondansetron HCL 4 MG/2 ML VIAL IVPUSH (06:07)
[2022-01-12 06:24] LABS: Anion Gap 12 (12-20); Blood Urea Nitrogen 7 mg/dL (9-16); Calcium 9.4 mg/dL (8.4-10.2); Carbon Dioxide 25 mmol/L (22-29); Chloride 103 mmol/L (96-108); Creatinine Clr Calc Pharmacy 131.7; Estimated Glomerular Filt Rate > 60; Glucose Random 121 mg/dL (60-115); Potassium 4.1 mmol/L (3.3-5.1); Sodium 136 mmol/L (135-145)
--- NOTE | 2022-01-12 06:51 | HO.POSTANES ---
Post Anesthesia Evaluation Post Anesthesia Evaluation Vital Signs: Vital Signs Temp Pulse Resp BP Pulse Ox 01/12/22 03:00 97.0 F 68 18 124/58 L 98 01/11/22 23:00 97.1 F 73 18 141/67 H 96 01/11/22 19:31 97.8 F 66 16 135/63 100 Anesthesia: General Endotracheal-GETA Mental Status: Awake Pain Control: Satisfactory Nausea/Vomiting: None Hydration: Adequate Anesthesia-Related Issues: No Anes. Related Issues
[2022-01-12 07:00] VITALS: BP 131/62; PULSE 59; RESP 18; TEMP 36.8; O2SAT 98
[2022-01-12] MEDS: Famotidine/PF 20 MG/2 ML VIAL IVPUSH (08:23)
[2022-01-12] MEDS: Lactated Ringers 1,000 ML 100 ML IVCONT (08:24)
[2022-01-12] MEDS: Loratadine 10 MG TABLET PO (08:24)
--- NOTE | 2022-01-12 11:48 | MHC.CM.PN ---
EMR REVIEWED, PT ADMITTED S/P LAP SLEEVE GASTRECTOMY AND HERNIA REPAIR, CM MET W/PT WHO IS A&O, PT REPORTS SHE LIVES ALONE, COUSIN WILL TRANSPORT, PT DENIES USE OF DME AND WORKS FOR [facility], PT VERIFIES MODERNA X3, PCP IS [facility] AND PT HAS COMPLETED A HCP W/THIS CM NAMING HER FRIEND LANG YANES [phone], PT PROVIDED W/EDUCATIONAL INFO, ORIGINAL AND 2 COPIES, COPY UPLOADED TO [facility] AND PLACED IN CHART W/PT PERMISSION. D/C PLAN: HOME TODAY SELF-CARE, COUSIN FOR TRANSPORT
== END 2022-01-12 12:35 | disposition home or self-care (01) | DRG 403 ==
LOC: HO.SSSA 08:23 → HO.S3 14:31
PROVIDERS: Nurse Practitioner; Physician Assistant; Admitting Provider Surgery; PCP Internal Medicine; Visit Provider Surgery
PROC: 0DB64Z3 Excision of Stomach, Percutaneous Endoscopic Approach, Vertical (ICD-10-PCS; CPT 43845; principal; 2022-01-11 10:10)
DX: E66.01 Morbid (severe) obesity due to excess calories (principal); K44.0 Diaphragmatic hernia with obstruction, without gangrene; K74.00 Hepatic fibrosis, unspecified; K76.0 Fatty (change of) liver, not elsewhere classified; F32.A Depression, unspecified; F43.10 Post-traumatic stress disorder, unspecified; Z68.41 Body mass index [BMI] 40.0-44.9, adult; M19.90 Unspecified osteoarthritis, unspecified site; K21.9 Gastro-esophageal reflux disease without esophagitis; F10.21 Alcohol dependence, in remission; F41.9 Anxiety disorder, unspecified; N94.6 Dysmenorrhea, unspecified; Z20.822 Contact with and (suspected) exposure to COVID-19; Z87.891 Personal history of nicotine dependence; Z88.8 Allergy status to other drugs, medicaments and biological substances; Z79.899 Other long term (current) drug therapy
CPT/HCPCS: 36415; 80048; 81025; 85014; 85018; 85025; 86850; 86900; 86901; 87635; 88307; 88342; 99024; A4649; C9088; J0131; J0690; J1100; J1170; J2250; J2405; J2550; J2765; J3010

== ENCOUNTER → 2022-01-18 13:39 | Outpatient (BNVA) | payer OTHER, SELFPAY | PROVIDERS: Referring Provider Internal Medicine; Visit Provider Physician Assistant Surgical | DX: Z13.89 Encounter for screening for other disorder (principal) ==

== ENCOUNTER 2022-06-20 | Outpatient (REF) | payer OTHER, SELFPAY ==
--- NOTE | ~2022-06-20 | XR_ITS ---
EXAMINATION: XR KNEES, STANDING AP XR KNEE, RIGHT CLINICAL INFORMATION: Knee pain COMPARISON: None TECHNIQUE: Standing AP view of both knees is performed along with lateral and axial patella views of the right knee. FINDINGS: Right: Normal bony mineralization. No fracture, dislocation, or destructive process. There are mild tricompartment degenerative changes with mild joint narrowing and marginal osteophyte. No erosive change. No lateralization or tilting patella. There is small suprapatellar effusion. Left: Normal bony mineralization. No definite joint narrowing and no erosive change. There is borderline bowing medial aspect lower femur, possibly related to remote injury. Clinically correlate. XR/XR knee standing BI IMPRESSION: Right: -Mild tricompartment degenerative changes. Small suprapatellar effusion. -No lateralization or tilting patella. Left: -No definite joint narrowing or erosive change. -Borderline bowing medial lower femur, possibly related to remote injury. Clinically correlate.
--- NOTE | ~2022-06-20 | XR_ITS ---
EXAMINATION: XR KNEES, STANDING AP XR KNEE, RIGHT CLINICAL INFORMATION: Knee pain COMPARISON: None TECHNIQUE: Standing AP view of both knees is performed along with lateral and axial patella views of the right knee. FINDINGS: Right: Normal bony mineralization. No fracture, dislocation, or destructive process. There are mild tricompartment degenerative changes with mild joint narrowing and marginal osteophyte. No erosive change. No lateralization or tilting patella. There is small suprapatellar effusion. Left: Normal bony mineralization. No definite joint narrowing and no erosive change. There is borderline bowing medial aspect lower femur, possibly related to remote injury. Clinically correlate. XR/XR knee RT 2V IMPRESSION: Right: -Mild tricompartment degenerative changes. Small suprapatellar effusion. -No lateralization or tilting patella. Left: -No definite joint narrowing or erosive change. -Borderline bowing medial lower femur, possibly related to remote injury. Clinically correlate.
== END 2022-06-20 00:01 | disposition home or self-care (01) ==
LOC: HO.HOSX
PROVIDERS: Visit Provider Physician Assistant
DX: M17.11 Unilateral primary osteoarthritis, right knee (principal); M25.562 Pain in left knee; Z79.899 Other long term (current) drug therapy
CPT/HCPCS: 20610; 73560; 73565; J1040

== ENCOUNTER 2022-06-23 05:35 | Emergency (ER) | payer OTHER, SELFPAY ==
[2022-06-23 05:54] VITALS: BP 135/78; PULSE 56; RESP 16; TEMP 36.6; O2SAT 98; BMI 40.5
[2022-06-23 07:21] LABS: MANUAL DIFF FLAG NO
[2022-06-23 07:30] LABS: Basophils Percent Auto 0.3 % (0-2); Eosinophils Absolute Auto 0.1 X10*3/uL (0.0-0.4); Eosinophils Percent Auto 0.8 % (0-4); Hematocrit 41.4 % (37.0-47.0); Hemoglobin 14.5 g/dl (12.0-16.0); Imm Gran Abs Auto 0.02 X10*3/uL (0.00-0.03); Imm Gran Pct Auto 0.3 % (0.0-0.4); Lymphocytes Percent Auto 31.6 % (20-40); Mean Corpuscular Volume 91.4 fL (80.0-98.0); Mean Platelet Volume 10.4 fL (9.4-12.3); Monocytes Absolute Auto 0.6 X10*3/uL (0.1-1.2); Monocytes Percent Auto 8.6 % (2-11); Neutrophils Absolute Auto 3.7 x10*3/uL (2.0-8.3); Neutrophils Percent Auto 58.4 % (45-73); Platelet Count 256 X10*3/uL (160-400); Red Blood Count 4.53 X10*6/uL (4.20-5.50); Red Cell Distribution Width 13.6 % (11.0-16.0); White Blood Count 6.4 X10*3/uL (4.8-10.8)
[2022-06-23 07:45] LABS: Alanine Aminotransferase 18 U/L (0-31); Albumin Level 4.4 g/dL (3.5-5.0); Alkaline Phosphatase 60 U/L (39-117); Anion Gap 14 (12-20); Aspartate Amino Transferase 14 U/L (5-31); Bilirubin Total 0.8 mg/dL (0.0-1.0); Blood Urea Nitrogen 13 mg/dL (9-16); Calcium 9.7 mg/dL (8.4-10.2); Carbon Dioxide 27 mmol/L (22-29); Chloride 103 mmol/L (96-108); Creatinine Clr Calc Pharmacy 121.3; Estimated Glomerular Filt Rate > 60; Glucose Random 87 mg/dL (60-115); Lipase 13 U/L (8-78); Sodium 140 mmol/L (135-145)
[2022-06-23 07:46] LABS: COVID-19 Test Negative (Negative); IDNOW Serial# 16C4AD1C
--- NOTE | 2022-06-23 08:16 | ED.GENADULT ---
HPI - General Adult General Chief complaint: General Medical Stated complaint: stomach pains, can't eat or defecate Time Seen by Provider: 06/23/22 08:16 Source: patient Mode of arrival: ambulatory Limitations: no limitations History of Present Illness HPI narrative: Patient is a 42 year old assigned female at with a history of bipolar disorder, gastric sleeve, and GERD, presenting to the emergency department today with lower abdominal pain. Patient states that she is having intermittent dizziness, nausea, vomiting, and lower abdominal pain. 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 Patient states that she is still only eating 1 meal of ensure a day. Patient states that she has not had her menstrual cycle this month but had it on time last month. Patient denies any dizziness, lightheadedness, fever, chills, blurry vision, double vision, loss of vision, chest pain, difficulty breathing, shortness of breath, back pain, night sweats, vaginal bleeding, vaginal discharge, pain with urination, increased urinary frequency, increased urinary urgency, blood in her urine or stool, syncope or a near syncopal episode, recent trauma or falls, bowel incontinence, bladder incontinence, bowel retention, bladder retention, or any other complaints at this time. Onset (ago): day(s) Location: abdomen Radiation: non-radiation Severity: mild Severity scale (1-10): 3 Quality: dull Pain Consistency: intermittent Relieving factors: none Exacerbating factors: none Associated symptoms: nausea/vomiting Treatments prior to arrival: none Related Data Home Medications Medication Instructions Recorded Confirmed albuterol sulfate 90 mcg/actuation 2 inh inhalation Q6H PRN Allergy 05/15/20 04/19/22 breath activated powder inhaler Symptoms cetirizine 10 mg tablet 10 mg PO DAILY 05/15/20 04/19/22 acamprosate 333 mg tablet,delayed 666 mg PO TID 07/08/20 04/19/22 release clonazepam 0.5 mg tablet 0.5 mg PO BID PRN Anxiety 07/08/20 04/19/22 cholecalciferol (vitamin D3) 125 125 mcg PO DAILY 06/20/22 mcg (5,000 unit) capsule lamotrigine 100 mg tablet 100 mg PO DAILY 06/20/22 Previous Rx's Medication Instructions Recorded ondansetron HCl 4 mg tablet 4 mg PO Q12H for nausea/vomiting 03/21/22 #20 tabs tranexamic acid 650 mg tablet 1,300 mg PO TID 5 days #30 tabs 03/25/22 (Lysteda) pantoprazole 40 mg tablet,delayed 40 mg PO DAILY 90 days #90 tabs 04/19/22 release sucralfate 100 mg/mL oral 10 ml PO BID 90 days #1,800 mL 04/19/22 suspension (Carafate) Allergies Allergy/AdvReac Type Severity Reaction Status Date / Time prednisone Allergy Intermediate elevated Verified 06/20/22 08:41 blood pressure bupropion [From WELLBUTRIN] AdvReac Severe seizure Verified 06/20/22 08:41 buspirone [From BUSPAR] AdvReac Severe reports Verified 06/20/22 08:41 she becomes homicidal Steroids AdvReac Severe rachelle / HTN Uncoded 06/20/22 08:41 Review of Systems Constitutional: Constitutional: Reports no additional constitutional complaints, Denies chills, Denies fever(s) and Denies night sweats Eyes: Eyes: Reports no additional eye complaints, Denies blurry vision, Denies change in vision, Denies diplopia, Denies eye discharge, Denies loss of vision and Denies eye pain ENT: Denies dizziness Cardiovascular: Cardiovascular: Reports no additional cardiovascular complaints, Denies chest pain, Denies lightheadedness, Denies Loss of Consciousness and Denies dyspnea Respiratory: Respiratory: Reports no additional respiratory complaints and Denies dyspnea Gastrointestinal: Gastrointestinal: Reports no additional gastrointestinal complaints, Reports abdominal pain, Denies melena, Denies hematochezia, Denies change in bowel habits, Denies change in stool character, Reports nausea and Reports vomiting Genitourinary: Genitourinary: Denies hematuria, Denies urinary frequency, Denies dysuria, Denies urinary incontinence, Denies urinary hesitancy and Denies urinary urgency Musculoskeletal: Musculoskeletal: Reports no additional musculoskeletal complaints, Denies numbness and Denies tingling Neurologic: Denies dizziness, Denies loss of vision, Denies numbness and Denies tingling Psychiatric: Psychiatric: Reports no additional psychiatric complaints Endocrine: Endocrine: Reports no additional endocrine complaints Hematologic/Lymphatic: Hematologic/Lymphatic: Reports no additional hematologic/lymphatic complaints Allergic/Immunologic: Allergic/Immunologic: Reports no additional allergic/immunologic complaints PMFSH Past Medical History Attestation statement: The following information was validated with the patient. Source: old records reviewed Medical History Abnormal uterine bleeding (AUB) Alcohol dependence in remission Ankle sprain Arthritis Arthritis of left foot Bipolar 1 disorder BMI 39.0-39.9,adult COVID-19 vaccine series completed Depression Diaphragmatic hernia Dizziness Dysfunctional uterine bleeding Dysmenorrhea Establishing care with new doctor, encounter for Excessive subcutaneous fat Family history of diabetes mellitus Foot pain, left GERD (gastroesophageal reflux disease) Hearing loss in right ear Heavy menses History of gastrectomy History of head injury Impaired fasting blood sugar Ingrown toenail of left foot Liver fibrosis Memory change Morbid obesity due to excess calories Myoma Obesity PTSD (post-traumatic stress disorder) Skin lesion of chest wall Steatosis, liver Swelling in left armpit Tobacco abuse Vitamin A deficiency Vitamin B1 deficiency Vitamin B12 deficiency Vitamin D deficiency Surgical History H/O gastric sleeve H/O removal of cyst History of incision and drainage Family History Family History Mother No problems noted. Other Family history unknown Social History Social History Household Members: None Housing: Apartment Do you presently have visiting nurse or other home services: No Alcohol intake: never Patient Tobacco Use Status: Former Tobacco user Quit Date: 2020 Tobacco use type: Cigarette Cigarettes Per Day: 4 Advance Directives: No Advance Directives Information Provided: No service: No Current occupational status: employed Current occupation: [employer] Physical Exam ED Vital Signs: Vital Signs - 24 hr 06/23/22 05:54 Temperature 97.8 F Pulse Rate 56 Respiratory Rate 16 Blood Pressure 135/78 Pulse Oximetry 98 Oxygen Delivery Method Room Air BMI result Body Mass Index 40.5 Const General: cooperative, no acute distress, alert and awake Nutritional Appearance: well nourished and obese Orientation/consciousness: patient oriented x3 Limitations: no limitations HENMT Head: Yes normal to inspection and Yes atraumatic Ears: hearing grossly normal bilaterally and external ears normal General nose exam: Normal external nose present, no nasal discharge noted and no epistaxis Face and sinus: Yes normal facial exam, No abrasion and No laceration Mouth: Normal oral and palatal mucosa present, no drooling and no muffled voice Eyes General: appearance normal, both eyes and all related structures Periorbital: periorbital findings normal Eyelids: Yes eyelids normal Conjunctivae: conjunctivae normal Pupils: Equal, round and reactive pupils present EOM: EOMs intact bilaterally Neck Neck: Yes normal visual inspection, Yes full ROM and Yes no lymphadenopathy Chest Chest palpation & inspection: normal inspection of the chest Resp Effort & Inspection: normal respiratory effort and able to speak in complete sentences Auscultation: clear to auscultation bilaterally Cardio Rate: regular rate Rhythm: regular rhythm GI Inspection: Yes normal to inspection Palpation (GI): Soft to palpation, not firm, nontender and no guarding Neuro General: patient oriented x3 and moves all extremities Cranial nerves: Yes Equal, round and reactive pupils present Cognition (Neuro): normal cognition Motor exam (neuro): 5/5 motor strength present throughout Sensory Exam: Normal double simultaneous stimulation for sensation Coordination: [id number] test normal Extrem General: Yes normal to inspection, Yes full ROM and Yes capillary refill normal Psych Appearance: grossly normal Mental Status: mental status grossly normal Affect: normal affect Attitude: cooperative Thought process: Normal thought process present Thought content: Normal thought content present Insight: Good insight present (Psych) Medical Decision Making [facility] Narrative Medical decision making narrative: Patient is a 42 year old assigned female at with a history of gastric sleeve, GERD, and bipolar disorder presenting to the emergency department today with lower abdominal pain. Patient's physical exam was unremarkable. Patient's blood work was unremarkable. I explained my physical exam findings as well as all test results to the patient. I answered all questions asked by the patient. When reviewing all the results with the patient she expressed concerns of being dehydrated, I informed her that her lab work did not reflect this but if she wanted, we could provide an IV bag of fluids. Patient stated that she would rather be discharged than wait for additional fluids. I explained to the patient that imaging of her abdomen could also be done and she again stated that she would prefer to be discharged. I stressed the importance of the patient taking her medication as prescribed. 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 I stressed the importance of the patient returning to the emergency department immediately if her symptoms were to worsen or if she were to develop any dizziness, shortness of breath, difficulty breathing, chest pain, blurry vision, loss of vision, nausea, vomiting, abdominal pain, fever, chills, back pain, or any other complaints. Patient verbalized agreement and understanding with this treatment plan and discharge. Medical Records Medical records reviewed: Yes I reviewed the patient's medical records. Lab Data Lab results reviewed: Yes I reviewed the patient's lab results. Result diagrams: 06/23/22 07:13 06/23/22 07:13 Labs: Lab Results 06/23/22 06/23/22 06/23/22 Range/Units 07:13 07:13 07:13 WBC 6.4 (4.8-10.8) X10*3/uL RBC 4.53 (4.20-5.50) X10*6/uL Hgb 14.5 (12.0-16.0) g/dl Hct 41.4 (37.0-47.0) % MCV 91.4 (80.0-98.0) fL MCH 32.0 (27.0-33.0) pg MCHC 35.0 (31.0-35.0) g/dl RDW 13.6 (11.0-16.0) % Plt Count 256 (160-400) X10*3/uL MPV 10.4 (9.4-12.3) fL Immature Gran % (Auto) 0.3 (0.0-0.4) % Neut % (Auto) 58.4 (45-73) % Lymph % (Auto) 31.6 (20-40) % [place] % (Auto) 8.6 (2-11) % Eos % (Auto) 0.8 (0-4) % Baso % (Auto) 0.3 (0-2) % Lymph # (Auto) 2.0 (1.2-4.9) X10*3/uL [place] # (Auto) 0.6 (0.1-1.2) X10*3/uL Eos # (Auto) 0.1 (0.0-0.4) X10*3/uL Baso # (Auto) 0.0 (0.0-0.2) X10*3/uL Abs Immat Gran (auto) 0.02 (0.00-0.03) X10*3/uL Absolute Neuts (auto) 3.7 (2.0-8.3) x10*3/uL Absolute Nucleated RBC 0.000 (0.0-0.012) X10*3/uL Nucleated RBC % (auto) 0.0 (0.0-0.2) /100WBC Sodium 140 (135-145) mmol/L Potassium 4.0 (3.3-5.1) mmol/L Chloride 103 (96-108) mmol/L Carbon Dioxide 27 (22-29) mmol/L Anion Gap 14 (12-20) BUN 13 D (9-16) mg/dL Creatinine 0.81 (0.5-1.4) mg/dL Estim Creat Clear Calc 121.3 Estimated GFR > 60 Random Glucose 87 (60-115) mg/dL Calcium 9.7 (8.4-10.2) mg/dL Total Bilirubin 0.8 (0.0-1.0) mg/dL AST 14 (5-31) U/L ALT 18 (0-31) U/L Alkaline Phosphatase 60 (39-117) U/L Total Protein 7.0 (6.5-8.0) g/dL Albumin 4.4 (3.5-5.0) g/dL Lipase 13 (8-78) U/L COVID-19 ([facility]) Negative (Negative) COVID-19 Clin Com See Note Discharge Plan Discharge Clinical Impression: Gastritis Patient Disposition: Home, Self-Care Instructions: Gastritis (ED) Additional Instructions: Follow up with your primary care provider. Return to the emergency department immediately if your symptoms worsen or if you develop any dizziness, shortness of breath, difficulty breathing, chest pain, blurry vision, loss of vision, nausea, vomiting, abdominal pain, fever, chills, back pain, or any other complaints. Prescriptions: No Action ondansetron HCl 4 mg tablet 4 mg PO Q12H Qty: 20 0RF tranexamic acid [Lysteda] 650 mg tablet 1,300 mg PO TID 5 Days Qty: 30 11RF Hold Instructions: Discuss restart with Dr Ramon Rx Instructions: Start 1st day of menses and take it up to 3-5 days of menses. albuterol sulfate 90 mcg/actuation aerosol powdr breath activated 2 inh inhalation Q6H PRN (Reason: Allergy Symptoms) cetirizine 10 mg tablet 10 mg PO DAILY clonazepam 0.5 mg tablet 0.5 mg PO BID PRN (Reason: Anxiety) acamprosate 333 mg tablet,delayed release (DR/EC) 666 mg PO TID sucralfate [Carafate] 100 mg/mL suspension 10 ml PO BID 90 Days Qty: 1800 0RF pantoprazole 40 mg tablet,delayed release (DR/EC) 40 mg PO DAILY 90 Days Qty: 90 0RF lamotrigine 100 mg tablet 100 mg PO DAILY cholecalciferol (vitamin D3) 125 mcg (5,000 unit) capsule 125 mcg PO DAILY Referrals: Benjamín Mistry MD [Primary Care Provider] - Stand Alone Forms: Work/School Release Print Language: Occitan
== END 2022-06-23 09:17 | disposition home or self-care (01) ==
PROVIDERS: Emergency Provider Emergency Medicine Emergency Medical Services; PCP Internal Medicine
DX: K29.70 Gastritis, unspecified, without bleeding (principal); E66.9 Obesity, unspecified; Z68.41 Body mass index [BMI] 40.0-44.9, adult; Z98.84 Bariatric surgery status; Z90.3 Acquired absence of stomach [part of]; Z87.891 Personal history of nicotine dependence; Z20.822 Contact with and (suspected) exposure to COVID-19
CPT/HCPCS: 36415; 80053; 83690; 85025; 87635; 99283; 99284

== ENCOUNTER 2022-07-21 10:19 | Outpatient (REF) | payer OTHER, SELFPAY ==
[2022-07-21 10:38] LABS: MANUAL DIFF FLAG NO
[2022-07-21 11:59] LABS: Basophils Percent Auto 0.5 % (0-2); Eosinophils Absolute Auto 0.1 X10*3/uL (0.0-0.4); Eosinophils Percent Auto 1.8 % (0-4); Hematocrit 39.5 % (37.0-47.0); Hemoglobin 13.4 g/dl (12.0-16.0); Imm Gran Abs Auto 0.01 X10*3/uL (0.00-0.03); Imm Gran Pct Auto 0.2 % (0.0-0.4); Lymphocytes Absolute Auto 2.1 X10*3/uL (1.2-4.9); Lymphocytes Percent Auto 37.7 % (20-40); Mean Corpuscular HGB Conc 33.9 g/dl (31.0-35.0); Mean Corpuscular Volume 94.3 fL (80.0-98.0); Mean Platelet Volume 11.2 fL (9.4-12.3); Monocytes Absolute Auto 0.5 X10*3/uL (0.1-1.2); Monocytes Percent Auto 9.4 % (2-11); Neutrophils Absolute Auto 2.8 x10*3/uL (2.0-8.3); Neutrophils Percent Auto 50.4 % (45-73); Platelet Count 248 X10*3/uL (160-400); Red Blood Count 4.19 X10*6/uL (4.20-5.50); Red Cell Distribution Width 13.4 % (11.0-16.0); White Blood Count 5.5 X10*3/uL (4.8-10.8)
[2022-07-21 13:00] LABS: Alanine Aminotransferase 15 U/L (0-31); Albumin Level 4.2 g/dL (3.5-5.0); Alkaline Phosphatase 60 U/L (39-117); Anion Gap 11 (12-20); Aspartate Amino Transferase 13 U/L (5-31); Bilirubin Total 0.8 mg/dL (0.0-1.0); Blood Urea Nitrogen 8 mg/dL (9-16); Calcium 9.6 mg/dL (8.4-10.2); Carbon Dioxide 29 mmol/L (22-29); Chloride 104 mmol/L (96-108); Cholesterol 189 mg/dL; Estimated Glomerular Filt Rate > 60; Glucose Fasting 80 mg/dL (60-99); HDL Cholesterol 48 mg/dL; LDL Cholesterol Calculated 124 mg/dl; Potassium 3.9 mmol/L (3.3-5.1); Sodium 140 mmol/L (135-145); Total Protein 6.3 g/dL (6.5-8.0); Triglycerides 88 mg/dL
[2022-07-21 13:01] LABS: Estimated Average Glucose 97 mg/dL
[2022-07-21 13:08] LABS: Vitamin B12 > 2000 pg/mL (200-900)
[2022-07-28 12:19] LABS: Vitamin D 25-OH, D2 <4 ng/mL; Vitamin D 25-OH, D3 33 ng/mL; Vitamin D 25-OH, Total 33 ng/mL (30-100)
== END 2022-07-21 10:20 | disposition home or self-care (01) ==
LOC: HO.LAB 10:19
PROVIDERS: PCP Internal Medicine; Visit Provider Internal Medicine
DX: E66.01 Morbid (severe) obesity due to excess calories (principal); F10.21 Alcohol dependence, in remission; F31.9 Bipolar disorder, unspecified; K21.9 Gastro-esophageal reflux disease without esophagitis; K29.70 Gastritis, unspecified, without bleeding; K76.0 Fatty (change of) liver, not elsewhere classified; Z98.84 Bariatric surgery status
CPT/HCPCS: 36415; 80053; 80061; 82306; 82607; 83036; 84443; 85025